=== PATIENT | female | born 1965 | race Caucasian/White ===

== ENCOUNTER 2016-05-09 10:17 | Emergency (ER) | payer BC, OTHER ==
[~2016-05-09] VITALS: Ht 162.6 cm; Wt 76.8 kg
[2016-05-09 10:20] VITALS: TEMP 36.9; Ht 162.6 cm; Wt 76.8 kg
[2016-05-09] MEDS ORDERED: SODIUM CHLORIDE 0.9% 1000ML 1,000 ML IV ONE (10:45)
[2016-05-09] MEDS ORDERED: SIMV20TA2 PO (11:08)
[2016-05-09] MEDS ORDERED: LEVO75TA5 PO (11:08)
[2016-05-09 11:27] LABS: MEAN CORPUSCULAR HEMOGLOBIN 29.2 pg (25-34); MEAN CORPUSCULAR HGB CONC 34.4 g/dl (32-36); MEAN PLATELET VOLUME 10.6 fL (7.4-10.4); PLATELET COUNT 272 K/uL (130-400); RED BLOOD COUNT 4.59 M/uL (4.2-5.4); WHITE BLOOD COUNT 9.58 K/uL (4.8-10.8)
--- NOTE | 2016-05-09 11:43 | EMERGENCY ROOM VISIT NOTE ---
History First contact with patient: 10:26 Chief Complaint: ILLNESS Stated Complaint: BRONCHITIS, SWOLLEN AND NUMB TONGUE History of Present Illness The patient is a 50 year old female who presents to the Emergency Room with complaints of tongue numbness. She has had a URI for the past 1 week. [place] [facility] [place] and was told she has viral bronchitis. She was not given any antibiotics or steroids. She was doing well up until this morning when she started noticing numbness and tingling in her tongue. She also notes difficulty speaking. She also continues to have URI symptoms including nasal congestion, sinus headache with sore throat. She has had a cough for the past week and it has become productive with clear sputum for the past 1 day. At present she denies shortness of breath, coughing and wheezing. She has not had any chest pain, palpitations, pre-sycope/syncope, or lower extremity edema. She denies fevers, nightsweats or chills. Her appetite has been good. She has been voiding without difficulty. She denies any aphasia, or dysphasia. Notes a mild degree of dysphagia. No focal symptoms in the upper and lower limbs. Review of Systems A 10 point review of systems was negative unless stated above. Past Medical/Surgical History Medical Problems: (1) HLD (hyperlipidemia) (2) Hyperthyroidism Family History No pertinent family history Father has CAD Social History Smoking Status: Never Smoker Smokeless Tobacco Use: No Alcohol Use: occasionally (1 glass wine per week) Drug Use: none Marital Status: Housing Status: lives with family Occupation Status: employed (principal) Current/Historical Medications Scheduled Levothyroxine Sodium (Levothyroxine Sodium), 1 TAB PO DAILY Simvastatin (Zocor), 20 MG PO QPM Allergies Coded Allergies: No Known Allergies (Unverified , 05/09/16) Physical Exam Vital Signs Date Time Temp Pulse Resp B/P Pulse Ox O2 Delivery O2 Flow Rate FiO2 05/09/16 13:50 88 18 131/86 98 05/09/16 12:21 89 16 135/94 99 05/09/16 10:20 36.9 109 18 150/84 96 Room Air Pain Rating (0-10): 0 Physical Exam Constitutional: Vital signs as above were reviewed. Eyes: Pupils equal, round, and reactive to light. Extraocular muscles are intact. No proptosis. No photophobia. ENT: Mucous membranes are moist. Oropharynx is clear. No sinus tenderness. TMs are clear bilaterally. submandibular fullness bilaterally mildly erythematous pharynx, no purulence No nasal sinus tenderness Tongue movements grossly intact Uvula midline Cardiovascular: Heart with a regular rate and rhythm. Pulses are palpable and symmetric in all 4 extremities. No pedal edema appreciated. Respiratory: Lungs clear to auscultation bilaterally. No wheezes, rales, or rhonchi appreciated. No accessory muscle use. No retractions. No increased work of breathing. GI: Abdomen soft, nontender, nondistended. Normal active bowel sounds. No abdominal hernias appreciated. No rebound. No guarding. : No CVA tenderness appreciated. Musculoskeletal: No midline cervical or vertebral tenderness. No gross deformities. No bony tenderness. No calf swelling or tenderness. Integumentary: Warm, dry, no rashes appreciated. Neurological: Patient awake, alert, and oriented x 3. Cranial nerves two through 12 grossly intact. Motor 5 out of 5 strength bilateral upper and lower extremities. Lymph: No cervical lymphadenopathy appreciated. Medical Decision & Procedures ER Provider Diagnostic Interpretation: CT SOFT TISSUE NECK WITH CT DOSE: 554.12 mGy.cm CLINICAL HISTORY: Bronchitis, tongue swelling. Hoarseness. Possible abscess. TECHNIQUE: Helical images were acquired during intravenous administration of 93 cc of Optiray 320. COMPARISON STUDY: None. FINDINGS: The visualized portions of the lung apices are unremarkable. No thyroid masses are visualized. No salivary gland masses are visualized. There are mildly prominent jugular digastric, supraclavicular, and submitted for lymph nodes, likely reactive There are no fluid collections suspicious for abscess. There is no evidence of airway compromise. No mucosal space masses are visualized. The epiglottis appears normal. The retropharyngeal soft tissues appear normal. There is mucosal thickening within the maxillary, sphenoid, and ethmoid sinuses. IMPRESSION: 1. No pathologic masses identified 2. No evidence of abscess 3. No evidence of airway compromise 4. Mildly prominent cervical lymph nodes likely reactive. 5. Inflammatory changes within the paranasal sinuses Electronically signed by: Eliseo King M.D. 05/09/2016 12:10 PM Dictated Date/Time: 05/09/2016 12:05 PM Laboratory Results 05/09/16 11:05 05/09/16 11:05 Test 05/09/16 11:05 Red Blood Count 4.59 M/uL (4.2-5.4) Mean Corpuscular Volume 85.0 fL (80-100) Mean Corpuscular Hemoglobin 29.2 pg (25-34) Mean Corpuscular Hemoglobin Concent 34.4 g/dl (32-36) RDW Standard Deviation 40.3 fL (36.4-46.3) RDW Coefficient of Variation 13.1 % (11.5-14.5) Mean Platelet Volume 10.6 fL (7.4-10.4) Anion Gap 10.0 mmol/L (3-11) Est Creatinine Clear Calc Drug Dose 80.3 ml/min Estimated GFR () 92.6 Estimated GFR (Non- 79.9 BUN/Creatinine Ratio 13.0 (10-20) Calcium Level 9.3 mg/dl (8.5-10.1) Magnesium Level 2.5 mg/dl (1.8-2.4) Medications Administered Medications (Trade) Dose Ordered Sig/Wellington Route Start Time Stop Time Status Last Admin Dose Admin Sodium Chloride (Nss 1000ml) 1,000 ml @ 999 mls/hr Q1H1M ONCE IV 05/09/16 10:45 05/09/16 11:45 DC 05/09/16 11:05 999 MLS/HR ED Course 10:25 - Patient seen and evaluated Orders for CBC, BMP, Mg, Rapid Strep + culture 1000 ml NSS bolus ordered 10:50 - Precepted with Dr. Prater 11:30 - Re-evaluated; patient feeling much better CT ordered 12:30 - CT reviewed and WNL Labs reviewed WNL 13:00 - Discussed results with patient Patient feeling much better, ready for discharge 13:15 - Discharge paperwork completed Discharged in stable condition Medical Decision Patient presents with submandibular swelling and tongue numbness. Patient was examined, physical exam performed and EMR reviewed. Differential diagnosis includes laryngitis, strep pharyngitis, retropharyngeal abscess, peritonsillar abscess, Ruel's angina. With reported tongue swelling , must also consider allergic reaction or anaphylaxis. Patient presented with intact respiratory status and hemodynamic stability. Rapid strep negative, culture pending. CT imaging of neck was negative for mass or abscess. Does show some reactive lymphadenopathy. Patient notes marked improvement of tongue numbness after receiving fluids. Labs were reviewed and negative for evidence of infection, anemia or electrolyte abnormalities. Patient was stable and suitable for discharged. She was discharged in stable condition with instructions to see PCP in 1 week for follow-up and see provider immediately if she develops any new acute upper respiratory symptoms suggesting airway compromise. Impression Primary Impression: Numbness of tongue Additional Impression: Submandibular gland swelling Departure Information Dispostion Home / Self-Care Condition GOOD Referrals Marsha Lawrence D.O. (PCP) Patient Instructions My [facility] Additional Instructions You came to the ED because of tongue swelling and tingling. When we evaluated you, we looked for signs of severe allergic reaction. Fortunately, your exam was grossly normal. You did note a recent upper respiratory infection, which you are still recovering from, which may be the cuprit. We checked your labs including a blood count for infection and kidney function. These were all normal. We checked a CT scan to rule-out an abscess and fortunately this was also normal. We treated you IV fluids. Throughout your stay, you noted that you tongue numbness was improving. Because your oxygen levels were excellent and your respiratory status was normal, we feel you can be discharged home with close follow-up with your primary care provider. If your symptoms fail to improve, acutely worsen, please seek medical attention immediately by either calling your primary care provider or going to your nearest emergency department. Otherwise, please see your primary care provider in 3-5 days to ensure that your symptoms continue to improve. It was a pleasure to be involved in your care and we wish you all the best. Problem Qualifiers
[2016-05-09 11:44] LABS: CALCIUM 9.3 mg/dl (8.5-10.1); CREATININE 0.86 mg/dl (0.60-1.20); MAGNESIUM 2.5 mg/dl (1.8-2.4); POTASSIUM 3.7 mmol/L (3.5-5.1)
[2016-05-09] MEDS ORDERED: OPTIRAY 320 IV PRN (11:45)
--- NOTE | 2016-05-09 12:11 | DIAGNOSTIC IMAGING REPORT ---
CT SOFT TISSUE NECK WITH CT DOSE: 554.12 mGy.cm CLINICAL HISTORY: Bronchitis, tongue swelling. Hoarseness. Possible abscess. TECHNIQUE: Helical images were acquired during intravenous administration of 93 cc of Optiray 320. COMPARISON STUDY: None. FINDINGS: The visualized portions of the lung apices are unremarkable. No thyroid masses are visualized. No salivary gland masses are visualized. There are mildly prominent jugular digastric, supraclavicular, and submitted for lymph nodes, likely reactive There are no fluid collections suspicious for abscess. There is no evidence of airway compromise. No mucosal space masses are visualized. The epiglottis appears normal. The retropharyngeal soft tissues appear normal. There is mucosal thickening within the maxillary, sphenoid, and ethmoid sinuses. IMPRESSION: 1. No pathologic masses identified 2. No evidence of abscess 3. No evidence of airway compromise 4. Mildly prominent cervical lymph nodes likely reactive. 5. Inflammatory changes within the paranasal sinuses Electronically signed by: Eliseo King M.D. 05/09/2016 12:10 PM Dictated Date/Time: 05/09/2016 12:05 PM
[2016-05-09 13:50] VITALS: BP 131/86; PULSE 88; O2SAT 98
--- NOTE | 2016-05-09 14:54 | EMERGENCY ROOM VISIT NOTE ---
History Report prepared by Myleneibaurea: Kenrick Prabhakar Under the Supervision of: Dr. Zhang Prater D.O. First contact with patient: 10:26 Chief Complaint: ILLNESS Stated Complaint: BRONCHITIS, SWOLLEN AND NUMB TONGUE History of Present Illness The patient is a 50 year old female who presents to the Emergency Room with complaints of persistent difficulty moving her tongue since she woke up this morning. The patient denies pain, swelling, or numbness of the tongue. The patient is having increased difficulty speaking secondary to the tongue movement. Her notes that she sounds different when she speaks. The patient also notes feeling fullness in the back of her throat and jaw. The patient also complains of persistent sore throat and coughing for the past week. She was diagnosed with bronchitis two days ago. She is not being treated for the bronchitis currently. The patient has a history of hyperlipidemia and hyperthyroidism. Patient denies headache, change in vision, fevers, chest pain, shortness of breath, nausea, vomiting, diarrhea, pain with urination, melena, or one sided weakness/numbness. Source of History: patient Onset: this morning Position: tongue Quality: other (difficult to move) Timing: other (persistent) Associated Symptoms: + cough, + sorethroat, No SOB, No chest pain, No diarrhea, No fevers, No headache, No melena, No nausea, No numbness, No urinary symptoms, No vomiting, No weakness Review of Systems See HPI for pertinent positives & negatives. A total of 10 systems reviewed and were otherwise negative. Past Medical & Surgical Medical Problems: (1) HLD (hyperlipidemia) (2) Hyperthyroidism Family History No pertinent family history Social History Smoking Status: Never Smoker Marital Status: Housing Status: lives with family Current/Historical Medications Scheduled Levothyroxine Sodium (Levothyroxine Sodium), 1 TAB PO DAILY Simvastatin (Zocor), 20 MG PO QPM Allergies Coded Allergies: No Known Allergies (Unverified , 05/09/16) Physical Exam Vital Signs Date Time Temp Pulse Resp B/P Pulse Ox O2 Delivery O2 Flow Rate FiO2 05/09/16 13:50 88 18 131/86 98 05/09/16 12:21 89 16 135/94 99 05/09/16 10:20 36.9 109 18 150/84 96 Room Air Physical Exam GENERAL: Sitting up in bed, alert, well appearing, well nourished, no distress, non-toxic EYE EXAM: normal conjunctiva. EARS: TMs are clear bilaterally. OROPHARYNX: no exudate, no erythema, lips, buccal mucosa, and tongue normal and mucous membranes are moist, no swelling in the submandibular region. NECK: supple, no nuchal rigidity, no adenopathy, non-tender, no stridor. LUNGS: Clear to auscultation. Normal chest wall mechanics HEART: no murmurs, S1 normal and S2 normal ABDOMEN: abdomen soft, non-tender, normo-active bowel sounds, no masses, no rebound or guarding. BACK: Back is symmetrical on inspection and there is no deformity, no midline tenderness, no CVA tenderness. SKIN: no rashes and no bruising UPPER EXTREMITIES: upper extremities are grossly normal. LOWER EXTREMITIES: No pitting edema. NEURO EXAM: Normal sensorium, cranial nerves II-XII intact, normal speech, no weakness of arms, no weakness of legs. No drift. Finger to nose intact. Gross sensation intact. Medical Decision & Procedures ER Provider Diagnostic Interpretation: CT:Per my review, radiologist interpretation. CT SOFT TISSUE NECK WITH CT DOSE: 554.12 mGy.cm CLINICAL HISTORY: Bronchitis, tongue swelling. Hoarseness. Possible abscess. TECHNIQUE: Helical images were acquired during intravenous administration of 93 cc of Optiray 320. COMPARISON STUDY: None. FINDINGS: The visualized portions of the lung apices are unremarkable. No thyroid masses are visualized. No salivary gland masses are visualized. There are mildly prominent jugular digastric, supraclavicular, and submitted for lymph nodes, likely reactive There are no fluid collections suspicious for abscess. There is no evidence of airway compromise. No mucosal space masses are visualized. The epiglottis appears normal. The retropharyngeal soft tissues appear normal. There is mucosal thickening within the maxillary, sphenoid, and ethmoid sinuses. IMPRESSION: 1. No pathologic masses identified 2. No evidence of abscess 3. No evidence of airway compromise 4. Mildly prominent cervical lymph nodes likely reactive. 5. Inflammatory changes within the paranasal sinuses Electronically signed by: Eliseo King M.D. 05/09/2016 12:10 PM Dictated Date/Time: 05/09/2016 12:05 PM Laboratory Results 05/09/16 11:05 05/09/16 11:05 Test 1/28/17 11:05 Red Blood Count 4.59 M/uL (4.2-5.4) Mean Corpuscular Volume 85.0 fL (80-100) Mean Corpuscular Hemoglobin 29.2 pg (25-34) Mean Corpuscular Hemoglobin Concent 34.4 g/dl (32-36) RDW Standard Deviation 40.3 fL (36.4-46.3) RDW Coefficient of Variation 13.1 % (11.5-14.5) Mean Platelet Volume 10.6 fL (7.4-10.4) Anion Gap 10.0 mmol/L (3-11) Est Creatinine Clear Calc Drug Dose 80.3 ml/min Estimated GFR () 92.6 Estimated GFR (Non- 79.9 BUN/Creatinine Ratio 13.0 (10-20) Calcium Level 9.3 mg/dl (8.5-10.1) Magnesium Level 2.5 mg/dl (1.8-2.4) Laboratory results per my review. Medications Administered Medications (Trade) Dose Ordered Sig/Wellington Route Start Time Stop Time Status Last Admin Dose Admin Sodium Chloride (Nss 1000ml) 1,000 ml @ 999 mls/hr Q1H1M ONCE IV 05/09/16 10:45 05/09/16 11:45 DC 05/09/16 11:05 999 MLS/HR ED Course ED COURSE: Vital signs were reviewed and showed tachycardia and hypertension. The patients medical record was reviewed The above diagnostic studies were performed and reviewed. ED treatments and interventions as stated above. 1025: Patient was evaluated by my resident. 1045: NSS 1000 ml @ 999 mls/hr. 1110: The patient was evaluated in room C6. A complete history and physical examination was performed. 1305: Updated the patient. 1315: Upon reevaluation, the patient is stable.I discussed my findings with the patient and she understands and agrees with the treatment plan. Based on the patients age, coexisting illnesses, exam and lab findings the decision to treat as an outpatient was made. The patient remained stable while under my care. The patient appeared well at the time of discharge. Medical Decision Etiologies such as viral syndrome, tonsillitis, streptococcal pharyngitis, mononucleosis, peritonsillar abscess, retropharyngeal abscess, otitis, pneumonia , influenza, as well as others were entertained. Patient is a 42-year-old female who presents the ER for cough, runny nose and congestion along with trouble talking. She is completely neurologically intact on exam. She complains of a change in her voice. She notes no swelling or numbness in her tongue. No fevers. Labs show no significant leukocytosis or anemia. BMP was unremarkable. Should for range of motion of her neck. No signs of meningitis or encephalitis. CT of her neck shows no obvious abscess or signs of epiglottitis. She is able to eat and drink without difficulty. Based her symptoms I do believe that she likely has a bronchiolitis and, [place] with laryngitis. Patient felt significantly better. She was tolerating secretions having no trouble talking was discharged to follow-up with her primary care doctor. Discussed with Pt concerning signs and symptoms to watch out for. Pt was instructed to follow up with their PCP and discussed with the patient their option to return to the ED at anytime for persistent or worsening symptoms. The appropriate anticipatory guidance and out-patient management, including indications for return to the emergency department, were explained at length to the patient and understood. Impression Primary Impression: Bronchitis Additional Impression: Laryngitis Scribe Attestation The scribe's documentation has been prepared under my direction and personally reviewed by me in its entirety. I confirm that the note above accurately reflects all work, treatment, procedures, and medical decision making performed by me. Departure Information Dispostion Home / Self-Care Referrals Marsha Lawrence D.O. (PCP) Forms HOME CARE DOCUMENTATION FORM, IMPORTANT VISIT INFORMATION, WORK / SCHOOL INSTRUCTIONS Patient Instructions My [facility] Additional Instructions You came to the ED because of tongue swelling and tingling. When we evaluated you, we looked for signs of severe allergic reaction. Fortunately, your exam was grossly normal. You did note a recent upper respiratory infection, which you are still recovering from, which may be the cuprit. We checked your labs including a blood count for infection and kidney function. These were all normal. We checked a CT scan to rule-out an abscess and fortunately this was also normal. We treated you IV fluids. Throughout your stay, you noted that you tongue numbness was improving. Because your oxygen levels were excellent and your respiratory status was normal, we feel you can be discharged home with close follow-up with your primary care provider. If your symptoms fail to improve, acutely worsen, please seek medical attention immediately by either calling your primary care provider or going to your nearest emergency department. Otherwise, please see your primary care provider in 3-5 days to ensure that your symptoms continue to improve. It was a pleasure to be involved in your care and we wish you all the best. Problem Qualifiers
== END 2016-05-09 13:52 | disposition home or self-care (01) ==
LOC: C.EDB 10:18 → C.EDC 13:52
DX: J40 Bronchitis, not specified as acute or chronic (principal); J04.0 Acute laryngitis; E78.5 Hyperlipidemia, unspecified; E05.90 Thyrotoxicosis, unspecified without thyrotoxic crisis or storm

== ENCOUNTER → 2016-09-11 | Outpatient (CLI) | payer BC ==
[~2016-09-11] MED LIST: LEVO75TA5 PO; SIMV20TA2 PO
--- NOTE | 2016-09-11 09:02 | DIAGNOSTIC IMAGING REPORT ---
RIGHT FOOT 3 VIEWS HISTORY: RIGHT FOOT PAIN Right COMPARISON: Right foot 04/14/2013. FINDINGS: There is no fracture or dislocation. Soft tissues are unremarkable. No radiopaque foreign bodies. IMPRESSION: No fractures. Electronically signed by: George Gongora M.D. 09/11/2016 9:01 AM Dictated Date/Time: 09/11/2016 9:00 AM
== END | disposition home or self-care (01) ==
LOC: C.RDSM 08:30
PROVIDERS: ATTEND Family Medicine
DX: M79.671 Pain in right foot (principal)